=== PATIENT | male | born 1950 | race Caucasian/White ===

== ENCOUNTER 2018-06-19 14:04 | Emergency (ER) | payer MEDICARE ==
[~2018-06-19] VITALS: Ht 167.6 cm; Wt 88.9 kg
[~2018-06-19 14:04] MED LIST: CHOLESTEROL MED; MEDROLDOSEPACK PO; RITALIN20 MG PO; [UNRECOGNIZED DRUG - REMARK]
[2018-06-19 15:08] LABS: ABSOLUTE BASOPHILS 0.1 thou/uL (0.0-0.2); ABSOLUTE EOSINOPHILS 0.1 thou/uL (0.0-0.7); ABSOLUTE LYMPHOCYTES 1.6 thou/uL (0.8-5.3); ABSOLUTE MONOCYTES 0.7 thou/uL (0.0-1.2); BASOPHILS 0.7 %; EOSINOPHILS 0.8 %; HEMATOCRIT 42.4 % (42.0-52.0); HEMOGLOBIN 14.4 gm/dL (14.0-18.0); LYMPHOCYTES 14.3 %; MCH 29.7 pg (26.0-34.0); MCHC 34.1 g/dL (28.0-37.0); MCV 87.2 fL (80.0-100.0); MONOCYTES 5.7 %; MPV 8.4 fl. (7.2-11.1); NUCLEATED RBCS 0 /100WBC; POLYS 78.5 %; RBC 4.86 mil/uL (4.50-6.00); RDW-CV 13.8 % (10.5-14.5); WBC 11.5 thou/uL (4.0-11.0)
[2018-06-19 15:12] LABS: ANION GAP 7 mmol/L (7-16); BUN 16 mg/dL (7-18); CALCIUM 8.9 mg/dL (8.5-10.1); CHLORIDE 104 mmol/L (98-107); CO2 27 mmol/L (21-32); CREATININE 1.2 mg/dL (0.6-1.3); GLUCOSE 148 mg/dL (70-99); POTASSIUM 4.2 mmol/L (3.5-5.1); SODIUM 138 mmol/L (136-145)
[2018-06-19 15:19] LABS: ALBUMIN 3.4 g/dL (3.4-5.0); ALKALINE PHOSPHATASE 66 U/L (46-116); SGOT 25 U/L (15-37); SGPT 24 U/L (30-65); TOTAL BILIRUBIN 0.4 mg/dL (<0.1-1.0); TOTAL PROTEIN 6.9 g/dL (6.4-8.2); TROPONIN-I LEVEL <0.06 ng/mL (<0.06)
[2018-06-19] MEDS ORDERED: TRAMADOL 50 MG50 MG PO (16:03)
[2018-06-19] MEDS ORDERED: PENICILLIN V P500 MG PO (16:03)
[2018-06-19 16:14] LABS: PLATELET COUNT* 200 thou/uL (150-400)
[2018-06-19 16:30] VITALS: BP 98/44
--- NOTE | 2018-06-20 12:19 | EKG ---
[place] [address] ELECTROCARDIOGRAM REPORT Name: ALBERTA BRADLEY JR Room: [facility]#: [id number] Admission: 06/19/18 Attend Phys: Discharge: 06/19/18 Date of : 48 Report #: [id number] THIS REPORT FOR: //name// 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 06/20/18 1219 1437 1437 Dayne Tamayo MD, FACC /EPI
== END 2018-06-19 16:31 | disposition home or self-care (01) ==
LOC: M.ERS 14:04
PROVIDERS: Emergency Medicine Emergency Medical Services
DX: K02.9 Dental caries, unspecified (principal); T40.2X5A Adverse effect of other opioids, initial encounter; Z88.8 Allergy status to other drugs, medicaments and biological substances; Y92.89 Other specified places as the place of occurrence of the external cause

== ENCOUNTER → 2019-11-02 | Outpatient (CLI) | payer MEDICARE ==
[~2019-11-02] MED LIST changes: +PENICILLIN V P500 MG PO; +TRAMADOL 50 MG50 MG PO
== END ==
LOC: M.MRI 10-31 13:30
PROVIDERS: ATTEND Psychiatry & Neurology Neurology
DX: G31.84 Mild cognitive impairment of uncertain or unknown etiology (principal); J34.2 Deviated nasal septum